=== PATIENT | male | born 1980 ===

== ENCOUNTER 2017-10-30 09:15 | Emergency (ER) | payer OTHER ==
[2017-10-30 09:44] VITALS: BP 118/69
--- NOTE | 2017-10-30 10:09 | UC ---
Upper Extremity HPI - HPI Summary HPI Summary: 36 y/o male presents to the urgent care c/o Rt shoulder pain for the past week s /p doing push-ups. Pain has worsen for the past 2 days which makes it difficult to raise his Rt arm. Pain is 6/10 with movement specially when he raises his arm , and 0/10 with rest. Pt doesn't recall any trauma. He has not taking anything to alleviate symptoms. Pt denies numbness and tingling over the RT arm or finger. Pt denies SOB, chest pain, N/V/D. - History of Current Complaint Chief Complaint: UCBackPain Stated Complaint: ARM/BACK PAIN Time Seen by Provider: 10/30/17 10:07 Hx Obtained From: Patient Onset/Duration: Sudden Onset, Lasting Weeks - 1 week, Worse Since - 2 days aog Severity Initially: Mild Severity Currently: Moderate Pain Intensity: 6 - movement Pain Scale Used: 0-10 Numeric - Allergies/Home Medications Allergies/Adverse Reactions: Allergies Allergy/AdvReac Type Severity Reaction Status Date / Time No Known Allergies Allergy Verified 10/30/17 09:37 PMH/Surg Hx/FS Hx/Imm Hx Previously Healthy: Yes - Pt denies PMHX - Surgical History Surgical History: Yes Surgery Procedure, Year, and Place: pneunothorax on rt side in 2002- had a lap procdure - Family History Known Family History: Positive: None - Pt denies FMHX - Social History Occupation: Employed Full-time Lives: With Family Alcohol Use: None Substance Use Type: None Smoking Status (MU): Never Smoked Tobacco Review of Systems Constitutional: Negative Skin: Negative Eyes: Negative ENT: Negative Respiratory: Negative Cardiovascular: Negative Gastrointestinal: Negative Genitourinary: Negative Motor: Decreased ROM - RT shoulder due to pain Musculoskeletal: Other: - RT shoulder pain Neurological: Negative Psychological: Negative Is Patient Immunocompromised?: No All Other Systems Reviewed And Are Negative: Yes Physical Exam Triage Information Reviewed: Yes Vital Signs: Initial Vital Signs Temp 98.3 F 10/30/17 09:38 Pulse 65 10/30/17 09:38 Resp 16 10/30/17 09:38 BP 118/69 10/30/17 09:38 Pulse Ox 97 10/30/17 09:38 - Additional Comments Vital Signs Reviewed: Yes General: well developed, well nourished male sitting in the examining table w/o any apparent distress, Eyes: Positive: Conjunctiva Clear - PERRLA, EOMI, fundi grossly normal ENT: Positive: Normal ENT inspection, Hearing grossly normal, Pharynx normal, TMs normal Neck: Positive: Supple, Nontender, No Lymphadenopathy Respiratory: Positive: Chest non-tender, Lungs clear, Normal breath sounds, No respiratory distress Cardiovascular: Positive: RRR, No Murmur, Pulses Normal, Brisk Capillary Refill Abdomen Description: Positive: Nontender, No Organomegaly, Soft. Negative: CVA Tenderness (R), CVA Tenderness (L) Bowel Sounds: Positive: Present Musculoskeletal: Positive: Strength Intact, Other: - RT shoulder: The R shoulder is without obvious asymmetry or deformity when compared to the L shoulder. No surface trauma, ecchymosis, crepitus. No bony deformity or prominence of humeral head. No erythema, warmth. No tenderness to palpation over the clavicle,scapula. and over Acromioclavicular joint and humeral head with mild swelling, NT to palpation of the bicipital groove . NT to palpation of the muscles of the sternocleidomastoid, pectoralis, tenderness over biceps/ triceps, deltoid, trapezius, . Limited ROM due to pain specially on abduction. "empty can and drop arm test unable to perform due to pain. No axillary tenderness or lymphadenopathy. Normal sensation over the deltoid and fingers. Distal motor and neuromuscular status is intact. Neurological Exam: Normal Psychological Exam: Normal Upper Extremity Course/Dx - Course Course Of Treatment: 36 y/o male presents to the urgent care c/o Rt shoulder pain for the past week s/p doing push-ups. Pain has worsen for the past 2 days which makes it difficult to raise his Rt arm. Pain is 6/10 with movement specially when he raises his arm, and 0/10 with rest. Pt doesn't recall any trauma. He has not taking anything to alleviate symptoms. Pt denies numbness and tingling over the RT arm or finger. Pt denies SOB, chest pain, N/V/D. Hx obtained. Pt with tenderess over the Rt shoulder on abduction. Rt shoulder X- ray ordered: Impression: There was no fracture, dislocation, soft tissue swelling or FB noted. Pt's Rx Naproxen PO and Flexeril PO to alleviate symptoms. Pt decline to wear shoulder sling. Advised to f/u with PT referral for further evaluation and Orthopedic referral if not improvement of symptoms.Pt understood and agreed with D/C instructions. - Differential Dx/Diagnosis Differential Diagnosis/HQI/PQRI: Contusion, Fracture (Closed), Strain, Sprain, Other - tendonitis Provider Diagnoses: 1- Acute Rt shoulder pain Discharge - Discharge Plan Condition: Stable Disposition: HOME Prescriptions: Cyclobenzaprine TAB* [Flexeril 10 MG TAB*] 10 mg PO TID PRN #15 tab PRN Reason: Spasms - Muscle Naproxen [Naproxen 500 mg] 500 mg PO Q8H PRN #30 tab PRN Reason: Pain Patient Education Materials: Tendinitis (ED), Shoulder Pain (ED) Referrals: [facility] [place] PHYSICIAN REFERRAL [Outside] - 1 Week Hugo Taylor MD [Medical Doctor] - 1 Week Additional Instructions: 1-Please take medications as directed to alleviate pain and swelling. Avoid driving if the Flexeril PO tabs makes you drowsy. 2-Please apply ice,Avoid any heavy lifting or extraneous exercise 3- Please f/u with Orthopedic or your PCP in 1 week is not improvement of symptoms for further evaluation and treatment.
--- NOTE | 2017-10-30 10:51 | RAD ---
Indication: RIGHT shoulder pain for one week following exercise. Comparison: No relevant prior exams available on the [facility] [place] [place] PACS for comparison. Technique: Internal and external rotation AP and scapular Y views RIGHT shoulder Report: Normal acromioclavicular and glenohumeral joint alignment. Negative for fracture. No appreciable arthropathic change evident. Negative for calcific tendinopathy. Unremarkable soft tissue contours. IMPRESSION: Negative exam.
== END 2017-10-30 11:28 | disposition home or self-care (01) ==
LOC: UCEAST 09:15
DX: M25.511 Pain in right shoulder (principal)
CPT/HCPCS: 99202; G0463

== ENCOUNTER 2017-11-03 17:59 | Emergency (ER) | payer OTHER ==
[2017-11-03 18:17] VITALS: BP 110/72
--- NOTE | 2017-11-03 18:24 | UC ---
Minor Trauma HPI - HPI Summary HPI Summary: 36 year old male presents with head/facial injury secondary to a fall while ice skating. - History of Current Complaint Chief Complaint: UCHeadInjury Stated Complaint: FALL Time Seen by Provider: 11/03/17 18:20 Hx Obtained From: Patient Onset/Duration: Sudden Onset Severity Initially: Severe Severity Currently: Severe Pain Scale Used: 0-10 Numeric - 5 Mechanism Of Injury: Fall From Height Of: Alleviating Factor(s): Nothing Associated Signs And Symptoms: Positive: Loss Of Consciousness, Ecchymosis, Swelling - Allergies/Home Medications Allergies/Adverse Reactions: Allergies Allergy/AdvReac Type Severity Reaction Status Date / Time No Known Allergies Allergy Verified 11/03/17 18:10 PMH/Surg Hx/FS Hx/Imm Hx Previously Healthy: Yes - Surgical History Surgical History: Yes Surgery Procedure, Year, and Place: pneunothorax on rt side in 2002- had a lap procdure - Family History Known Family History: Positive: None - Pt denies FMHX - Social History Alcohol Use: None Substance Use Type: None Smoking Status (MU): Never Smoked Tobacco Review of Systems Constitutional: Negative Skin: Negative Eyes: Negative ENT: Negative Respiratory: Negative Cardiovascular: Negative Gastrointestinal: Negative Genitourinary: Negative Motor: Negative Neurovascular: Negative Musculoskeletal: Negative Neurological: Headache Psychological: Negative All Other Systems Reviewed And Are Negative: Yes Physical Exam Triage Information Reviewed: Yes Vital Signs: Initial Vital Signs Temp 36.8 C 11/03/17 18:11 Pulse 82 11/03/17 18:11 Resp 16 11/03/17 18:11 BP 110/72 11/03/17 18:11 Pulse Ox 100 11/03/17 18:11 Vital Signs Reviewed: Yes Eye Exam: Normal ENT: Positive: Other - left facial ecchymosis Dental Exam: Normal Neck exam: Normal Neck: Positive: 1 Respiratory Exam: Normal Cardiovascular Exam: Normal Abdominal Exam: Normal Musculoskeletal Exam: Normal Neurological Exam: Normal Psychological Exam: Normal Skin Exam: Normal Minor Trauma Course/Dx - Differential Dx/Diagnosis Provider Diagnoses: concussion. left facial swelling. head injury Discharge - Discharge Plan Condition: Stable Disposition: OTHER Discharge Disposition Comment: patient suggested to go to the er Patient Education Materials: Concussion (ED), Head Injury (ED) Referrals: No Primary Care Phys,NOPCP [Primary Care Provider] - Additional Instructions: patient suggested to go to er for traumatic head/face injury.
== END 2017-11-03 18:29 ==
LOC: UCEAST 17:59
DX: S06.0X9A Concussion with loss of consciousness of unspecified duration, initial encounter (principal); R22.0 Localized swelling, mass and lump, head; S09.90XA Unspecified injury of head, initial encounter; W00.0XXA Fall on same level due to ice and snow, initial encounter; Y93.21 Activity, ice skating; Y92.9 Unspecified place or not applicable; Y99.9 Unspecified external cause status
CPT/HCPCS: 99212; G0463

== ENCOUNTER 2017-11-03 18:45 | Emergency (ER) | payer OTHER ==
--- NOTE | 2017-11-03 19:46 | RAD ---
HISTORY: Left-sided facial injury, head injury, amnesia COMPARISONS: None TECHNIQUE: Multiple contiguous axial CT scans were obtained of the head without intravenous contrast. FINDINGS: HEMORRHAGE/INFARCT: There is no hemorrhage or acute infarct. MASSES/SHIFT: There is no mass or shift. EXTRA-AXIAL SPACES: There are no extra-axial fluid collections. SULCI AND VENTRICLES: The sulci and ventricles are normal in size and position for the patient's stated age. CEREBRUM: There are no focal parenchymal abnormalities. BRAINSTEM: There are no focal parenchymal abnormalities. CEREBELLUM: There are no focal parenchymal abnormalities. VESSELS: The vessels are grossly normal. PARANASAL SINUSES: The paranasal sinuses are clear. ORBITS: The orbits are unremarkable. BONES AND SOFT TISSUE: No bone or soft tissue abnormalities are noted. OTHER: None IMPRESSION: NO ACUTE INTRACRANIAL PATHOLOGY.
--- NOTE | 2017-11-03 19:47 | RAD ---
HISTORY: Left-sided facial injury COMPARISONS: None TECHNIQUE: Multiple contiguous axial CT scans were obtained of the face without intravenous contrast, with coronal and sagittal multiplanar reformations. FINDINGS: BONES: There is no displaced fracture or dislocation. The orbital rim is intact. The zygomatic arch is intact. The pterygoid plates are intact. ORBITS: The globes are round. The optic nerves are symmetric. The extraocular musculature is normal. There is no post septal or intraconal inflammatory change. There is no retrobulbar hematoma. PARANASAL SINUSES: The paranasal sinuses are clear. The frontal sinuses are hypoplastic. BRAIN AND SOFT TISSUE: There is soft tissue swelling over the left maxillary eminence. OTHER: None. IMPRESSION: NO FACIAL FRACTURE
--- NOTE | 2017-11-03 20:00 | ED ---
Head Injury - HPI Summary HPI Summary: 36M presents with head injury today. He slipped and fell on the ice and struck the left side of her face. He has large contusion to left check. He admits to amnesia after the incident. no change in vision. not on blood thinners. no nausea or vomiting. moderate headache. no dizziness. no LOC. is visiting product scientist. friend is translating. nontender neck. - History Of Current Complaint Chief Complaint: EDFacialInjury Stated Complaint: CT SCAN FACIAL-CC TRANSFER Time Seen by Provider: 11/03/17 18:53 Pain Intensity: 3 - Allergies/Home Medications Allergies/Adverse Reactions: Allergies Allergy/AdvReac Type Severity Reaction Status Date / Time No Known Allergies Allergy Verified 11/03/17 18:10 PMH/Surg Hx/FS Hx/Imm Hx Endocrine/Hematology History: Denies: Hx Diabetes, Hx Thyroid Disease Cardiovascular History: Denies: Hx Hypertension Respiratory History: Denies: Hx Asthma, Hx Chronic Obstructive Pulmonary Disease (COPD) GI History: Denies: Hx Ulcer - Surgical History Surgery Procedure, Year, and Place: pneunothorax on rt side in 2002- had a lap procdure Infectious Disease History: No Infectious Disease History: Denies: Hx Hepatitis, Hx Human Immunodeficiency Virus (HIV), History Other Infectious Disease, Traveled Outside the [place] in Last 30 Days - Family History Known Family History: Positive: None - Pt denies FMHX - Social History Alcohol Use: None Substance Use Type: Reports: None Smoking Status (MU): Never Smoked Tobacco Review of Systems Negative: Fever Negative: Chest Pain Negative: Shortness Of Breath Positive: Headache All Other Systems Reviewed And Are Negative: Yes Physical Exam Triage Information Reviewed: Yes Vital Signs On Initial Exam: Initial Vitals Temp Pulse Resp BP Pulse Ox 97.5 F 76 16 116/65 98 11/03/17 18:50 11/03/17 18:50 11/03/17 18:50 11/03/17 18:50 11/03/17 18:50 Vital Signs Reviewed: Yes Appearance: Positive: Well-Appearing Skin: Positive: Warm, Dry Head/Face: Positive: Normal Head/Face Inspection Eyes: Positive: Normal, Conjunctiva Clear Respiratory/Lung Sounds: Positive: Clear to Auscultation, Breath Sounds Present Cardiovascular: Positive: Normal, RRR Abdomen Description: Positive: Nontender, Soft Bowel Sounds: Positive: Present Musculoskeletal: Positive: Normal Neurological: Positive: Sensory/Motor Intact, Alert, Oriented to Person Place, Time, CN Intact II-III, Heel to Toe, Finger to Nose Psychiatric: Positive: Normal - Brandie Coma Scale Best Eye Response: 4 - Spontaneous Best Motor Response: 6 - Obeys Commands Best Verbal Response: 5 - Oriented Diagnostics - Vital Signs Vital Signs Temp Pulse Resp BP Pulse Ox 11/03/17 18:50 97.5 F 76 16 116/65 98 - Laboratory Lab Statement: Any lab studies that have been ordered have been reviewed, and results considered in the medical decision making process. - CT brain CT Interpretation: No Acute Changes CT Interpretation Completed By: Radiologist maxillary facial CT Interpretation: No Acute Changes CT Interpretation Completed By: Radiologist Head Injury Course/Dx Course Of Treatment: 36M presents with head injury today. He slipped and fell on the ice and struck the left side of her face. He has large contusion to left check. He admits to amnesia after the incident. no change in vision. not on blood thinners. no nausea or vomiting. moderate headache. no dizziness. no LOC. is visiting product scientist. friend is translating. normal neuro exam. due to amnesia will get CT. CT maxillary facial and brain normal. patient understand and agrees with plan. - Diagnoses Differential Diagnosis/HQI/PQRI: Concussion Without LOC, Contusion, Intracranial Bleed Provider Diagnoses: Head injury Discharge - Discharge Plan Condition: Good Disposition: HOME Patient Education Materials: Concussion (ED) Referrals: [facility] [place] [facility]IAN REFERRAL [Outside] Additional Instructions: Place ice on area as needed Take Tylenol or ibuprofen for headache every 6 hours, do not take flexeril for next couple days Modify activities as tolerated Follow up with primary within 5 days Return to ED if develop vomiting, severe headache, change in behavior, or any new or worsening symptoms
[2017-11-03 20:12] VITALS: BP 100/67
== END 2017-11-03 20:15 | disposition home or self-care (01) ==
LOC: ED 18:45
DX: S09.90XA Unspecified injury of head, initial encounter (principal); S00.83XA Contusion of other part of head, initial encounter; W00.0XXA Fall on same level due to ice and snow, initial encounter; Y93.9 Activity, unspecified; Y92.9 Unspecified place or not applicable
CPT/HCPCS: 70450; 70486; 99281